=== PATIENT | male | born 1955 | race Caucasian/White ===

== ENCOUNTER → 2017-10-25 07:30 | Outpatient (CLI) | payer OTHER, SELFPAY ==
--- NOTE | 2017-10-25 | DI.CT.S_ITS ---
PROCEDURE: CT ABDOMEN WO/W CON INDICATIONS: NONHYPERFUNCTIONING NEUROENDOCRINE TUMOR TECHNIQUE: Noncontrast 3 mm thick sections acquired through the pancreas. After the administration of intravenous contrast, 3 mm thick pancreatic-phase images acquired from the diaphragm to the iliac crests. 3 mm thick coronal and sagittal reformats were performed. For radiation dose reduction, the following was used: automated exposure control, adjustment of mA and/or kV according to patient size. COMPARISON: [facility], CT, CT ABD PANCREATIC PROTOCOL, 07/17/2016, 9:04. [facility], CT, ABDOMEN/PELVIS WITH CONTRAST, 08/20/2016, 17:25. [facility], CT, CT ABD W CON, 09/22/2016, 11:29. FINDINGS: Image quality: Excellent. Lung bases: There is mild scarring or atelectasis in the lung bases. Heart size is normal. Pancreas: There are postsurgical changes demonstrated status post distal pancreatectomy of the hepatic tail. No discrete mass lesion demonstrated in the residual pancreas. No pancreatic duct dilatation. No peripancreatic fluid collections. Other solid organs: No focal hepatic lesions identified. Gallbladder appears within normal limits without calcified gallstones. Biliary system is non dilated. The spleen is surgically absent. There is mild subdiaphragmatic scarring redemonstrated within the left upper quadrant. No adrenal nodules. Kidneys demonstrate no hydronephrosis. Multiple bilateral renal cysts are demonstrated, slightly increased in size from the prior studies. There is a small amount of the stone within the right renal pelvis measuring up to 0.5 cm. Peritoneum and bowel: Visualized bowel loops demonstrate normal wall thickness and caliber. There is colonic diverticulosis without acute diverticulitis visualized. No free fluid or air. Nodes and vessels: No retroperitoneal or mesenteric adenopathy by size criteria. Aorta and inferior vena cava are normal in size. Bones: No suspicious bony lesions. No vertebral body compression fractures. Miscellaneous: There is fat stranding within the right paracentral ventral abdominal wall in the region of a previously visualized fat containing hernia. IMPRESSION: 1. No evidence of new recurrent or metastatic disease. 2. Postsurgical changes status post distal pancreatectomy and splenectomy with scarring demonstrated. No new fluid collections. 3. Small nonobstructing stone in the right renal pelvis. Dictated by: Armond Cisneros M.D. on 10/25/2017 at 11:17 Approved by: Armond Cisneros M.D. on 10/25/2017 at 11:24
== END ==
PROVIDERS: Family Provider Student in an Organized Health Care Education/Training Program; PCP Family Medicine; Visit Provider Internal Medicine Gastroenterology
DX: C7A.8 Other malignant neuroendocrine tumors (principal)
CPT/HCPCS: 74170; Q9967

== ENCOUNTER 2018-12-04 13:57 | Emergency (ER) | payer OTHER, SELFPAY ==
[2018-12-04 14:00] VITALS: BP 162/92; PULSE 70; RESP 18; TEMP 36.7; O2SAT 96
--- NOTE | 2018-12-04 15:28 | ED_ITS ---
HPI - Skin/Abscess/Foreign Bdy <Filomena Caldwell PA-C - Last Filed: 12/04/18 20:58> General Chief complaint: Skin/Abscess/Foreign Body Stated complaint: Might have a spider bit rt hand Time Seen by Provider: 12/04/18 15:13 Source: patient Mode of arrival: ambulatory Limitations: no limitations History of Present Illness HPI narrative: This 63-year-old right-handed male comes in due to right hand itching and swelling that started suddenly about 7 hours prior to arrival. He states that he was driving from [place] and put his right hand down on the floor between the seat to stretch. He put his hand back on the steering wheel and felt sudden itching in his right middle finger, then redness and swelling that started to spread to the back of his hand within about 20 minutes. He sta merari that he put cold AC on as his hand and finger felt warm, then swelling started to spread into his 2nd finger. He states that it is a little bit hard to bend his fingers because they feel tight, not painful. He states the warm sensation is completely gone and swelling has improved considerably in the last hour. He states that some crates were loaded into his car prior to this occurring and so he thinks maybe a bite from an insect or spider that crawled onto the floor though he did not see when. He denies any other possible injury or trauma and has been feeling well today. He has not had fever. He was sent here from walk-in clinic, now wants to go home and start Benadryl since this is better Related Data Home Medications Medication Instructions Recorded Confirmed multivitamin [Multiple Vitamins] 1 tab PO QDAY #0 09/29/17 03/03/18 Previous Rx's Medication Instructions Recorded hydrochlorothiazide 25 mg tablet 25 mg PO QDAY #30 tab 03/03/18 lisinopril 40 mg tablet 40 mg PO DAILY #30 tab 03/03/18 metoprolol succinate ER 25 mg 25 mg PO QDAY #30 tab 03/03/18 tablet,extended release 24 hr Allergies Allergy/AdvReac Type Severity Reaction Status Date / Time No Known Drug Allergies Allergy Unverified 03/03/18 14:57 Review of Systems <Filomena Caldwell PA-C - Last Filed: 12/04/18 20:58> Review of Systems ROS Unobtainable: All systems reviewed & are unremarkable except as noted in HPI and below PFSH <Filomena Caldwell PA-C - Last Filed: 12/04/18 20:58> Medical History Essential hypertension (12/31/15) Pain of right hip joint (12/31/15) Hydrocele (05/22/16) Hypertension (Chronic) Bilateral hydrocele (Resolved ~09/2017) Hernia (Resolved) Surgical History Status post hernia repair (2006) Status post hernia repair (2002) Status post appendectomy (1967) Hx of hernia repair (Resolved 09/2017) History of hydrocelectomy (Resolved 09/2017) History of pancreatectomy (Resolved 07/2016) 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 Social History Smoking Status: Never smoker Social History Smoking Status: Never smoker Exam <Filomena Caldwell PA-C - Last Filed: 12/04/18 20:58> Narrative Exam Narrative: GENERAL APPEARANCE: Patient sitting comfortably, in no distress. LUNGS: Clear to auscultation bilaterally. HEART: Rate and rhythm regular without murmur, normal S1 and S2, no S3 or S4. DERMATOLOGIC: Right middle finger on the dorsal surface between the PIP and MCP joint there is a small barely raised to to 3 mm papule. Surrounding skin is moderately erythematous extending to the proximal border of the 2nd finger as well as the MCP area. No other lesions, no puncture wounds or lacerations. 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 Right middle finger strength intact in all martins against resistance NEUROVASCULAR: Right hand fingers are warm and pink with brisk cap refill, sensation grossly intact Initial Vital Signs Initial Vital Signs: Vital Signs Temperature 98.1 F 12/04/18 14:00 Pulse Rate 70 12/04/18 14:00 Respiratory Rate 18 12/04/18 14:00 Blood Pressure 162/92 H 12/04/18 14:00 Pulse Oximetry 96 12/04/18 14:00 <Yue Ospina DO - Last Filed: 12/08/18 07:49> Initial Vital Signs Initial Vital Signs: Vital Signs Temperature 98.1 F 12/04/18 14:00 Pulse Rate 70 12/04/18 14:00 Respiratory Rate 18 12/04/18 14:00 Blood Pressure 162/92 H 12/04/18 14:00 Pulse Oximetry 96 12/04/18 14:00 Course <Filomena Caldwell PA-C - Last Filed: 12/04/18 20:58> Additional Information: Patient has had marked improvement during his stay in the ED, and history most suspicious for some type of bite or sting. Reasonable to start Benadryl which he already has at home, and monitor. He agreed to return if any acutely worsening symptoms. Vital Signs - 8 hr 12/04/18 14:00 12/04/18 15:35 Temperature 98.1 F Pulse Rate 70 64 Respiratory Rate 18 15 Blood Pressure 162/92 H 165/91 H Pulse Oximetry 96 95 <Yue Ospina DO - Last Filed: 12/08/18 07:49> Vital Signs - 8 hr 12/04/18 14:00 12/04/18 15:35 Temperature 98.1 F Pulse Rate 70 64 Respiratory Rate 18 15 Blood Pressure 162/92 H 165/91 H Pulse Oximetry 96 95 Discharge Plan Departure Patient Disposition: Home Clinical Impression: Insect bite of finger of right hand Qualifiers: Encounter type: initial encounter Finger: middle finger Qualified Code(s): S60.462A - Insect bite (nonvenomous) of right middle finger, initial encounter Discharge Date/Time: 12/04/18 15:37 Interventions: ED Discharge Assessment Last Done: 12/04/18 15:35 Instructions: DI for Insect Bites and Stings Activity Restrictions/Additional Instructions: I agree with you that the most likely source of the redness on your fingers and hand is an insect or spider bite, especially with a little bump that showed up on your middle finger. Since it has actually improved since you arrived, it is okay to monitor this at home. Please start Benadryl since you have that at home, 25 to 50 mg every 6 hours as needed for itching and redness (remember this can make you sleepy and not to drive). You can take ibuprofen as needed for pain or swelling although the Benadryl may help more. You can continue ice. As we talked about, you should return if this is acutely worse again, i.e. if you have streaking redness, rapid increase in swelling, new weakness or fever. Otherwise, please see your PCP if this is not resolving over the next few days as histamine reactions to bites usually peak within 72 hours, then start to improve. Prescriptions: No Action lisinopril 40 mg tablet 40 mg PO DAILY Qty: 30 RF: 11 hydrochlorothiazide 25 mg tablet 25 mg PO QDAY Qty: 30 RF: 11 metoprolol succinate [Toprol XL] 25 mg tablet extended release 24 hr 25 mg PO QDAY Qty: 30 RF: 11 multivitamin [Multiple Vitamins] 1 EACH tablet 1 tab PO QDAY Qty: 0 RF: 0 Referrals: Nilesh Brewer MD [Primary Care Provider] - <Yue Ospina DO - Last Filed: 12/08/18 07:49> Cosign ED Attending Cosignature Attestation: I was immediately available in the department for consultation. This documentation has been reviewed and I agree with assessment and plan. Supervised by Yue Ospina DO
[2018-12-04 15:35] VITALS: BP 165/91; PULSE 64; RESP 15; O2SAT 95
== END 2018-12-04 15:37 | disposition home or self-care (01) ==
PROVIDERS: Emergency Provider Internal Medicine; Family Provider Student in an Organized Health Care Education/Training Program; PCP Family Medicine
DX: S60.462A Insect bite (nonvenomous) of right middle finger, initial encounter (principal); W57.XXXA Bitten or stung by nonvenomous insect and other nonvenomous arthropods, initial encounter
CPT/HCPCS: 99282

== ENCOUNTER → 2019-04-28 08:08 | Outpatient (CLI) | payer OTHER, SELFPAY ==
[2019-04-28 09:04] LABS: Hemoglobin A1C% w Est Avg Glu 5.8 % (4.0-6.0)
== END ==
PROVIDERS: PCP Family Medicine; Visit Provider Family Medicine
DX: R73.9 Hyperglycemia, unspecified (principal)
CPT/HCPCS: 36415; 83036

== ENCOUNTER → 2020-07-12 15:53 | Outpatient (CLI) | payer OTHER, SELFPAY ==
[2020-07-12] MEDS: COVID-19 VACC #1, MRNA(MOD) 100 MCG/0.5 ML VIAL IM (16:02)
== END ==
PROVIDERS: PCP Family Medicine; Visit Provider Internal Medicine
DX: Z23 Encounter for immunization (principal)
CPT/HCPCS: 0011A; 91301

== ENCOUNTER → 2020-08-09 16:04 | Outpatient (CLI) | payer OTHER, SELFPAY ==
[2020-08-09] MEDS: COVID-19 VACC #2, MRNA(MOD) 100 MCG/0.5 ML VIAL IM (16:10)
== END ==
PROVIDERS: PCP Family Medicine; Visit Provider Internal Medicine
DX: Z23 Encounter for immunization (principal)
CPT/HCPCS: 0012A; 91301

== ENCOUNTER → 2020-08-16 07:23 | Outpatient (CLI) | payer OTHER, SELFPAY ==
[2020-08-16 08:02] LABS: Blood Urea Nitrogen 37 mg/dL (9-20); Estimated Glomerular Filt Rate > 60.0 mL/min (>60)
== END ==
PROVIDERS: PCP Family Medicine; Referring Provider Family Medicine; Visit Provider Family Medicine
DX: Z79.899 Other long term (current) drug therapy (principal)
CPT/HCPCS: 36415; 82565; 84520

== ENCOUNTER → 2020-12-05 11:18 | Outpatient (CLI) | payer OTHER, SELFPAY ==
[2020-12-05 11:57] LABS: Add Manual Diff / Slide Review NO; Basophils Absolute Auto 100 /uL (0-100); Basophils Percent Auto 0.8 % (0-2); Eosinophils Absolute Auto 400 /uL (0-450); Eosinophils Percent Auto 5.2 % (2-4); Hemoglobin 14.6 g/dL (13.5-17.5); Lymphocytes Absolute Auto 1800 /uL (1100-4500); Lymphocytes Percent Auto 24.7 % (25-40); Mean Corpuscular HGB Conc 33.2 % (30-36); Mean Corpuscular Hemoglobin 31.8 PG (26-34); Mean Corpuscular Volume 95.7 fL (80-100); Monocytes Absolute Auto 900 /uL (0-900); Monocytes Percent Auto 11.5 % (3-14); Neutrophils Absolute Auto 4300 /uL (1500-7000); Neutrophils Percent Auto 57.8 % (50-75); Platelet Count 254 X10^3/uL (150-400); Red Blood Cell Count 4.59 X10^6/uL (4.5-5.9); Red Cell Distribution Width 13.6 % (11.6-14.8); White Blood Cell Count 7.4 X10^3/uL (4.5-11.0)
[2020-12-05 12:13] LABS: Cholesterol 198 mg/dL (140-199); Glucose 143 mg/dL (80-110); HDL Cholesterol 63 mg/dL (40-60); LDL Cholesterol Calculated 97 mg/dL (<100); Triglycerides 191 mg/dL (35-150)
[2020-12-05 12:59] LABS: Vitamin D 25 Hydroxy (D3) 20.3 ng/mL (30.0-100.0)
[2020-12-05 13:14] LABS: Thyroid Stimulating Hormone 0.523 uIU/mL (0.47-4.68)
[2020-12-05 13:17] LABS: Folate 7.4 ng/mL (2.76-20.0); Vitamin B12 345 pg/mL (239-931)
[2020-12-05 14:45] LABS: Bacteria Urine None Seen; RBC Urine None Seen (0-5/HPF); WBC Urine None Seen (0-5/HPF)
[2020-12-05 14:59] LABS: Appearance Urine UA CLEAR; Bilirubin Urine UA NEGATIVE (NEGATIVE); Color Urine UA YELLOW; Glucose Urine UA NEGATIVE (Negative); Ketones Urine UA NEGATIVE (NEGATIVE); Leukocyte Esterase Urine UA NEGATIVE (NEGATIVE); Nitrite Urine UA NEGATIVE (Negative); Occult Blood Urine UA NEGATIVE (Negative); Protein Urine UA NEGATIVE (Negative); Specific Gravity Urine UA >=1.030 (1.000-1.035); Urobilinogen Urine UA 0.2 E.U./dL (0.2)
[2020-12-05 15:15] LABS: Culture Indicated Urine Cult Not Indicated; Uric Acid Crystals Urine Few
== END ==
PROVIDERS: PCP Family Medicine; Referring Provider Family Medicine; Visit Provider Family Medicine
DX: E78.2 Mixed hyperlipidemia (principal); K05.6 Periodontal disease, unspecified
CPT/HCPCS: 36415; 80061; 81001; 82180; 82306; 82607; 82746; 82947; 83036; 84443; 85025; 86140

== ENCOUNTER → 2024-05-16 10:27 | Outpatient (CLI) | payer OTHER, SELFPAY ==
[2024-05-16 12:14] LABS: Add Manual Diff / Slide Review NO; Basophils Absolute Auto 100 /uL (0-100); Basophils Percent Auto 1.4 % (0-2); Eosinophils Absolute Auto 600 /uL (0-450); Eosinophils Percent Auto 10.2 % (2-4); Hematocrit 43.5 % (41-53); Hemoglobin 14.9 g/dL (13.5-17.5); Lymphocytes Absolute Auto 1400 /uL (1100-4500); Lymphocytes Percent Auto 24.6 % (25-40); Mean Corpuscular HGB Conc 34.2 % (30-36); Mean Corpuscular Hemoglobin 33.7 PG (26-34); Mean Corpuscular Volume 98.5 fL (80-100); Monocytes Absolute Auto 800 /uL (0-900); Monocytes Percent Auto 13.8 % (3-14); Neutrophils Absolute Auto 2800 /uL (1500-7000); Platelet Count 241 X10^3/uL (150-400); Red Blood Cell Count 4.41 X10^6/uL (4.5-5.9); Red Cell Distribution Width 13.1 % (11.6-14.8); White Blood Cell Count 5.7 X10^3/uL (4.5-11.0)
[2024-05-16 12:50] LABS: BUN Creatinine Ratio 29.4 (6-22); Blood Urea Nitrogen 25 mg/dL (9-20); Calcium 9.5 mg/dL (8.4-10.2); Carbon Dioxide 25 mmol/L (22-32); Chloride 105 mmol/L (98-107); Estimated Glomerular Filt Rate > 60 mL/min (>60); Glucose 127 mg/dL (80-110); HEMOLYSIS < 15 (0-50); Potassium 4.3 mmol/L (3.4-5.1); Sodium 137 mmol/L (137-145)
[2024-05-16 12:58] LABS: Hemoglobin A1C% w Est Avg Glu 5.3 % (4.0-6.0)
--- NOTE | 2024-05-16 13:17 | EKG_ITS ---
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
[2024-05-16 13:20] LABS: Appearance Urine UA CLEAR; Bilirubin Urine UA NEGATIVE (NEGATIVE); Color Urine UA YELLOW; Glucose Urine UA NEGATIVE (Negative); Ketones Urine UA TRACE (NEGATIVE); Leukocyte Esterase Urine UA NEGATIVE (NEGATIVE); Nitrite Urine UA NEGATIVE (Negative); Occult Blood Urine UA NEGATIVE (Negative); Protein Urine UA NEGATIVE (Negative); Specific Gravity Urine UA 1.025 (1.000-1.035); Urobilinogen Urine UA 0.2 E.U./dL (0.2)
[2024-05-16 13:56] LABS: Bacteria Urine None Seen; Culture Indicated Urine Cult Not Indicated; RBC Urine None Seen (0-5/HPF); Squamous Epithelial Cell Urine None Seen (0-5/HPF); Uric Acid Crystals Urine Moderate; Urine Volume 10mL (spun); WBC Urine None Seen (0-5/HPF)
== END ==
PROVIDERS: PCP Family Medicine; Referring Provider Orthopaedic Surgery; Visit Provider Orthopaedic Surgery
DX: Z01.818 Encounter for other preprocedural examination (principal); Z01.812 Encounter for preprocedural laboratory examination; R73.9 Hyperglycemia, unspecified; N39.0 Urinary tract infection, site not specified
CPT/HCPCS: 36415; 80048; 81001; 83036; 85025; 93005

== ENCOUNTER 2024-05-25 05:56 | Day surgery (SDC) | payer OTHER, SELFPAY ==
[2024-05-17 08:22] VITALS: BMI 28.4
[2024-05-25] VITALS (10 sets, daily range): BP systolic 109–129; BP diastolic 52–76; PULSE 16–501; RESP 12–95; TEMP 36.6–37.1; O2SAT 93–98; BMI 29.5; BMI 30.1
--- NOTE | 2024-05-25 | DI.RAD.S_ITS ---
PROCEDURE: XR HIP W PEL IF DONE RT 2V INDICATIONS: RIGHT ANTERIOR BELÉN TECHNIQUE: 3 intraoperative fluoroscopic views of the hip acquired. COMPARISON: None. FINDINGS: Intraoperative fluoroscopic images shows right total hip arthroplasty in progress. IMPRESSION: Fluoro guidance was provided intraoperatively for right total hip arthroplasty performed by ordering physician. Dictated by: Hayden Zaragoza M.D. on 05/25/2024 at 10:42 Approved by: Hayden Zaragoza M.D. on 05/25/2024 at 10:43
--- NOTE | 2024-05-25 06:00 | DI.RAD.S_ITS ---
PROCEDURE: XR HIP W PEL IF DONE RT 2V INDICATIONS: BELÉN TECHNIQUE: 2 view(s) of the hip acquired. COMPARISON: [facility], CR, XR HIP W PEL IF DONE RT 2V, 05/25/2024, 9:08. FINDINGS: Bones: Patient is status post right hip arthroplasty, with hardware components in expected positions. The hip joint appears congruent. The visualized bony structures appear intact. Soft tissues: Overlying postoperative changes are noted. No suspicious soft tissue densities. IMPRESSION: Expected post-operative appearance of a hip arthroplasty. Dictated by: Garcia Hadley M.D. on 05/25/2024 at 11:19 Approved by: Garcia Hadley M.D. on 05/25/2024 at 11:19
[2024-05-25] MEDS: CELECOXIB 200 MG CAPSULE PO (06:57)
[2024-05-25] MEDS: VANCOMYCIN 1,500 MG/300 ML PIGGYBACK 200 MG IV (06:57)
[2024-05-25] MEDS: LACTATED RINGERS 1,000 ML 42 ML IV (06:57)
--- NOTE | 2024-05-25 07:30 | PM.PREOP ---
Pre-operative Note Interval Note History & Physical reviewed/Exam performed by Physician: Yes Changes to H&P: No
--- NOTE | 2024-05-25 07:30 | PM.OP.1 ---
Operative Date/Time/Diagnoses Date of procedure: 05/25/24 Time of procedure: 08:00 Pre-op diagnosis: right hip OA Post-op diagnosis: same Procedure & Clinicians Procedure: Right total hip arthroplasty anterior approach Same procedure as scheduled: Yes Indications: The patient has had progressively worsening right hip pain with radiographic changes consistent with arthritis. Non-operative management has failed and the patient has requested total hip replacement. The risks, benefits and alternatives to surgery were discussed with the patient prior to proceeding. Risks discussed included, but were not limited to, failure to relieve pain, leg length discrepancy, dislocation, stiffness, infection, nerve damage, deep venous thrombosis, pulmonary embolism, stroke, coma, heart attack, permanent paralysis and , as well as the potential need for eventual revision of the prosthetic. Surgeon: Betsy Giles Maintenance Technician 2Nd Shift: Nate Marte Anesthesia Type: General Operative Notes Findings: Severe right hip OA, adequate bone, adequate stability Closure Type: primary Specimen(s): none sent Prosthetic devices, grafts, tissues, transplants, or devices: [employer] R3 60, neutral poly liner, one 6.5 mm screw, polar stem 5 lateralized, 40 by +4 cobalt ch Estimated Blood Loss (mL): 250 Blood products transfused: none Procedure in detail: The patient was brought to the operating room. Patient was carefully positioned in the supine position. Time-out was performed and antibiotics were given. Anesthesia was induced. He was positioned in the on the table in order to allow hyperextension of the hip. The right lower extremity was prepped and draped in a standard sterile fashion. An anterior right hip incision was made 1 fingerbreadth lateral to the anterior superior iliac spine and extended distally towards the greater trochanter. Dissection was carried out through skin and subcutaneous tissues. Superficial hemostasis was achieved. The fascia over the tensor fascia camila was defined and incised with a knife. Two Allis clamps were used to grasp the fascia. Tensor fascia camila was retracted laterally. A gelpi retractor was placed. Dissection was carried out down along the neck. The circumflex vessels were carefully identified and cauterized with the Aqua Mantis. There was good visualization of the femoral neck. A Cobra was placed superior to the neck and the gluteus fibers were carefully stripped from that superior aspect of the capsule. A 2nd retractor was placed along the inferior aspect of the neck. The rectus insertion along the capsule was partially released. A 3rd retractor that was then gently placed over the rim of the acetabulum under the rectus. Capsule was carefully incised and released from the intertrochanteric line circumferentially superior to the mid sagittal line and inferiorly to the mid sagittal line until the lesser trochanter was palpable. A tag stitch was placed both in the superior and inferior limb of the capsular insertion. Along the acetabulum capsule was also released up to the mid sagittal 12:00 position. A portion of the labrum was resected. A saw was used to perform an osteotomy at the level of the intertrochanteric line and the junction of the superior femoral neck leaving approximately 1 finger breath of residual inferior neck above the lesser trochanter. A PA was used during the procedure and was essential for intraoperative retraction and safe implantation of the components. A 2nd cut was made along the femoral neck at the base of the head and a napkin ring of neck was removed. Corkscrew was placed in the femoral head and the head was removed without difficulty. Retractors were then repositioned around the acetabulum. Residual labrum was resected and additional osteophytes were removed. A reamer that was 4 mm below the templated size was placed by hand in the acetabulum and it was reamed to centralize the acetabulum. It was then reamed up to 2 under the templated size and fluoroscopy was brought in to confirm the position of the reaming and depth of reaming. I reamed 1 under the anticipated size. A trial cup was placed and noted that it was appropriately sized and fluoroscopy confirmed position and depth. The component was open and inserted without difficulty fluoroscopic imaging was used to confirm that the cup had been adequately seated and was well positioned. It was further stabilized with a screw. Neutral poly liner was placed. The cup was tested and noted to be stable. Attention was then directed to the femur. The femur was gently hyperextended additional capsular release was performed as needed in order to allow adequate visualization of the proximal femur with elevation of the femur. Patient was placed in a hyperextended slightly adducted position with maximum external rotation. Box osteotome was used to check for any residual neck as well as sclerotic bone along the trochanter. [place] pepper was placed in the femur. Additional broaching was performed. Canal finder was used to determine the alignment of the canal and position. Size 1 broach was placed. The canal was then appropriately broached up to the templated size as long as there was adequate stability of the broach and serial advancement of the broach without excessive impingement. Specific attention was directed at avoiding varus attempting to direct the distal aspect of the broach more anteriorly and avoiding excessive anteversion. Trial reduction showed acceptable range of motion, good stability, no posterior impingement, mandaen of leg length and appropriate lateral shuck. I also hyperflexed the hip and checked that there was no impingement anteriorly and there was good stability with flexion, adduction and internal rotation. Marcaine and Exparel 266 mg were injected. The stem was placed without difficulty. Repeat trial reduction and x-ray showed acceptable overall position, length, and no evidence of the femoral fracture. Final head was placed. Wound was meticulously irrigated with normal saline. The hip was reduced and additional Exparel and Marcaine were injected. The capsule was closed with interrupted nonabsorbable sutures. The fascia of the tensor was closed with interrupted and running Vicryl. No drain was placed. Any tensor fascia camila muscle that appeared to be contused or injured which was a minimal amount was carefully resected. Capsule around the tensor was injected with Exparel and Marcaine. The skin was closed with barbed stitches for the subcutaneous tissue and skin. We also used surgical glue. The wound was dressed sterilely. Brief Betadine soak was also used and was meticulously irrigated with normal saline. Patient was transferred to recovery room in satisfactory condition. Complications: none Post-operative Condition: stable Disposition: Acute Care Plan for aftercare: The patient will be maintained on a standard total hip replacement protocol with weight bearing as tolerated and anterior hip precautions. The patient will receive eliquis and sequential compression devices for DVT prophylaxis. The patient will be discharged home when safe for the home environment.
[2024-05-25] MEDS: CEFAZOLIN 2 GM/100 ML PREMIX 100 ML IV (08:03)
--- NOTE | 2024-05-25 08:25 | SUR.OPER ---
Supine on padded [place] table with bilateral legs secured in padded positioning boots and suspended in positioning spars, operative leg in traction per surgeon. Head on one pillow. Arm on non-operative side secured on padded armboard <90 degrees abduction. Arm on operative side padded and resting across chest then secured with tape over sheet. Padded perineal post in place per surgeon.
[2024-05-25] MEDS: BUPIVACAINE 0.25% (PF) 60 ML, EPINEPHrine 0.3 MG INJ (08:35)
[2024-05-25] MEDS: BUPIVACAINE LIPOSOME 266 MG/20 ML VIAL INJ (08:36)
[2024-05-25] MEDS: LACTATED RINGERS 1,000 ML 100 ML IV (11:51)
[2024-05-25] MEDS: ACETAMINOPHEN 325 MG TABLET 650 MG PO (13:11)
--- NOTE | 2024-05-25 13:34 | PT.IIE ---
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) Status post appendectomy (1967) Status post hernia repair (2006) Status post hernia repair (2002) Medical History (Last Reviewed 05/25/24 @ 06:55 by Citlalli Aguilar, RN) Bilateral hydrocele (~09/2017) Dry mouth DVT (deep venous thrombosis) Dysphagia Essential hypertension (12/31/15) Gout (~2020) Head and neck cancer (~2022) Hernia Hydrocele (05/22/16) Hypertension Osteoarthritis Pain of right hip joint (12/31/15) Pulmonary embolism on long-term anticoagulation therapy (05/2022) Status post chemoradiation Wears glasses Physical Therapy Inpatient Evaluation/Re-Eval M1 PT/OT-IP Prior Functional Status Start: 05/25/24 12:58 Freq: NEEDED Status: Active Protocol: Document 05/25/24 13:05 MB (Rec: 05/25/24 13:33 MB [id number]) Medical Review Prior Functional Status Medical History Reviewed Yes Diet/Fluid Consistency Regular Communication WNLs Mobility and Gait I Activities of Daily Living and IADL's I, lives with Social History Household Members spouse Living Arrangements House Number of Stairs To Enter/Railing? Pt to d/c to his kids' house in [place] that does not have steps to enter Home Environment High Toilet,Tub/Shower Home Equipment Four Wheel Walker,Hand Held Shower,Grab Bars Near Toilet, Grab Bars In Shower Employment Status Retired M2 PT-IP Current Condition Start: 05/25/24 12:58 Freq: NEEDED Status: Active Protocol: Document 05/25/24 13:05 MB (Rec: 05/25/24 13:33 MB [id number]) Physical Therapy Current Condition Current Condition Evaluation Date 05/25/24 Treatment Diagnosis Right anterior hip replacement M3 PT-IP Subjective Start: 05/25/24 12:58 Freq: NEEDED Status: Active Protocol: Document 05/25/24 13:05 MB (Rec: 05/25/24 13:33 MB [id number]) Subjective Physical Therapy Visit Type Type Initial Evaluation Visit Start Time 13:05 Visit Stop Time 13:25 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 Physical Therapy Visit Comments Patient Comments Pt communicates needs Therapy Pain Assessment Pain When Pain Assessed At Rest Pain Present Pain Present Pain Reported Location Right hip Intensity 3 Scale Used Numeric (0 - 10) M4 PT-IP Mobility and Gait Start: 05/25/24 12:58 Freq: NEEDED Status: Active Protocol: Document 05/25/24 13:05 MB (Rec: 05/25/24 13:33 MB [id number]) PT-Bed Mobility Assessment Rolling Level of Assist Contact Guard Assistance Supine to Sit Supine to Sit Contact Guard Assistance,1 Person Assistance,Head of Bed Elevated,Bedrails Scooting Scooting to Edge of Bed Contact Guard Assistance PT-Transfer Assessment Sit to and From Stand Sit to and from Stand Contact Guard Assistance,1 Person Assistance,Use of Upper Extremities Equipment Transfer Assistive Device Gait Belt,Front Wheeled Walker Orthotic/Prosthetic Devices or Brace: No Transfers Transfer Destination Toilet Transfer Technique Ambulation Transfer Ability Level of Assist Contact Guard Assistance,1 Person Assistance,Use of Upper Extremities Comments Mobility Comments Cues for hand placement and stepping pattern for first time up, ed pt and demo no hyperextension right leg. BP does not drop with hook lying to standing and is 126/71, 56 in hook lying Gait Assessment Gait Gait Assistance Required: Contact Guard Assist Distance (Feet) 15 Able to Maintain Weight Bearing Status Yes During Gait Assistive Devices Assistive Device Gait Belt,Front Wheeled Walker Orthotic/Prosthetic Devices or Brace: No Gait Deviations General Gait Pattern Antalgic,Decreased Stride Length,Step-to Gait,Wide Based Gait Factors Limiting Gait Function Factors Limiting Gait Function Decreased Activity Tolerance, Decreased Strength, Incoordination,Limited Range of Motion,Pain,Poor Balance Comments Gait Comments Pt with severe varus B knees, greater on the right, pt stands to urinate over commode with walker and gait belt and CGA and PT calls nsg in to complete ADL d/t PT schedule PT-Balance Assessment Sitting Balance and Reactions Static Sitting Balance Ability Good Dynamic Sitting Balance Ability Fair Standing Balance and Reactions Static Standing Balance Ability Fair Dynamic Standing Balance Ability Fair Device Used RW M5 PT-IP Objective Assessments Start: 05/25/24 12:58 Freq: NEEDED Status: Active Protocol: Document 05/25/24 13:05 MB (Rec: 05/25/24 13:33 MB [id number]) Orientation Orientation/Cognition Level of Alertness Alert Orientation Name,Age,Birthday,Month,Date, Year,Day of Week,Place, Situation Language Function Ability No Deficits Noted Safety Awareness Decreased Safety Awareness Memory Description No Deficits Noted Gross Range of Motion Upper Extremity ROM Impairments Defer to OT Lower Extremity ROM Assessment Right Impaired Impairments Decreased AROM right ankle today with AP and decreased right hip and knee range as well Strength Lower Extremity Strength Assessment Right Impaired Coordination Assessment Gross Coordination Gross Coordination Impaired Assessment Coordination Comments Slow mobility and coordination post-op Sensation Assessment Comments Sensation Comments Denies paresthesias Muscle Tone Muscle Tone WNL Yes M6 PT-IP Treatment Start: 05/25/24 12:58 Freq: NEEDED Status: Active Protocol: Document 05/25/24 13:05 MB (Rec: 05/25/24 13:33 [id number]) Physical Therapy Treatment Exercises Exercises Ankle Pumps Other Treatments Other Treatment Performed Reviewed no hyperextension, QS , GS and APs M7 PT-IP Assessment and Plan Start: 05/25/24 12:58 Freq: NEEDED Status: Active Protocol: Document 05/25/24 13:05 MB (Rec: 05/25/24 13:33 [id number]) PT Summary Assessment and Plan Potential Rehabilitation Potential Good Status of Condition at Evaluation Evolving Summary Impairments Pain,ROM,Strength,Balance, Coordination,Bed Mobility, Transfers,Gait,Activity Tolerance Progress Towards Goals Progressing Toward Goals Assessment Summary Pt is a 68 y/o male who does well post-op right anterior hip replacement today. He is able to urinate standing at toilet with RW and CGA and he is not orthostatic. Pain increases to 5.5/10 with increased gait distance and standing at commode. Recommend up to chair for meals and to toilet with nsg and RW. May need RW for d/c. Goals Bed Mobility Goal Independent Transfer Goal Independent,Front Wheeled Walker Gait Goal Independent,Front Wheel Walker Gait Distance 150 Other Goals If pt progresses well, practice steps so he can get in and out of his own home well. Days to Meet Goals 3 Frequency of Treatment Frequency Of Treatment Twice a Day Treatment Plan Physical Therapy Treatment Plan Bed Mobility Training,Transfer Training,Gait Training, Therapeutic Exercise,Balance Retraining,Post Op Education, Discharge Planning,Hot or Cold Pack,Neuromuscular Re-ed, Coordination Retraining,Manual Therapy Precautions Other Precautions No hyperextension right leg/ hip Weight Bearing Status Weight Bearing Status Weight Bear as Tolerated Recommendations To Nursing Amount of Assist Needed 1 Person Assist Discharge Recommendations PT Discharge Recommendations Home with Assistance, Outpatient PT Equipment Needed for Home Before May need RW for home, thinks Discharge he only has 4WRW Transportation Needs at Discharge Private Vehicle
--- NOTE | 2024-05-25 16:18 | OT.IP.EVAL ---
Current Diagnoses Unilateral primary osteoarthritis, right hip (05/25/24) Surgery Performed Operation Date: 05/25/24 07:45 Actual Procedures p Total Hip Arthroplasty/Anterior Approach(Right) - Betsy Giles MD Past Medical History (Last Reviewed 05/25/24 @ 06:55 by Citlalli Aguilar, RN) Bilateral hydrocele (~09/2017) Dry mouth DVT (deep venous thrombosis) Dysphagia Essential hypertension (12/31/15) Gout (~2020) Head and neck cancer (~2022) Hernia Hydrocele (05/22/16) Hypertension Osteoarthritis Pain of right hip joint (12/31/15) Pulmonary embolism on long-term anticoagulation therapy (05/2022) Status post chemoradiation Wears glasses Surgical History (Last Reviewed 05/25/24 @ 06:55 by Citlalli Aguilar, FRED) History of hydrocelectomy (09/2017) 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) Hx of hernia repair (09/2017) 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) Status post appendectomy (1967) Status post hernia repair (2006) Status post hernia repair (2002) Occupational Therapy Inpatient Evaluation/Re-Eval M1 PT/OT-IP Prior Functional Status Start: 05/25/24 12:58 Freq: NEEDED Status: Active Protocol: Document 05/25/24 16:20 [facility] (Rec: 05/25/24 16:31 [facility] [id number]) Medical Review Prior Functional Status Medical History Reviewed Yes Diet/Fluid Consistency Regular Communication WNLs Mobility and Gait I Activities of Daily Living and IADL's I, lives with Social History Household Members spouse Living Arrangements House Number of Stairs To Enter/Railing? Pt to d/c to his kids' house in [place] that does not have steps to enter Home Environment High Toilet,Tub/Shower Home Equipment Four Wheel Walker,Hand Held Shower,Grab Bars Near Toilet, Grab Bars In Shower Employment Status Retired M2 OT-IP Current Condition Start: 05/25/24 16:19 Freq: Status: Active Protocol: Document 05/25/24 16:20 [facility] (Rec: 05/25/24 16:31 [facility] [id number]) Occupational Therapy Current Condition Current Condition Evaluation Date 05/25/24 Treatment Diagnosis S/P R BELÉN anterior Diagnosis Onset Date 05/25/24 Post Operative Precautions Other Precautions NO excessive hyperextensiona and hip external rotation. M3 OT- IP Subjective and Pain Start: 05/25/24 16:19 Freq: Status: Active Protocol: Document 05/25/24 16:20 [facility] (Rec: 05/25/24 16:31 [facility] [id number]) OT- Subjective Occupational Therapy Visit Type Type Initial Evaluation Visit Start Time 16:00 Visit Stop Time 16:18 Occupational Therapy Visit Comments Patient Comments Pt agreed to work with OT and getting ready to go home. Patient/Caregiver Goals TO go home. OT Pain Assessment Pain When Pain Assessed During Mobility Pain Present Pain Present Pain Reported Location Right hip Pain Behaviors Facial Grimacing M4 OT- IP ADL's Start: 05/25/24 16:19 Freq: Status: Active Protocol: Document 05/25/24 16:20 [facility] (Rec: 05/25/24 16:31 [facility] [id number]) OT [id number] Comments OT Self-Feeding Comments Not at meal time. OT ADL-Grooming Comments OT Grooming Comments Not performed. OT ADL-Oral Care Comments Oral Care Comments NOt performed. OT ADL-Dressing Comments OT Dressing Comments Educated to dress the RLE first and take out last. Able to talk about LB dressing equipment, pt states to just get assist. OT ADL-Toileting Comments OT Toileting Comments Pt to take the urinal home. OT ADL-Bathing Comments OT Bathing Comments Suggested pt get shower chair . Spoke of covering the dressing for showering needs. M5 OT- IP IADL's Start: 05/25/24 16:19 Freq: Status: Active Protocol: Document 05/25/24 16:20 [facility] (Rec: 05/25/24 16:31 [facility] [id number]) OT-Instrumental Activities of Daily Living Home Safety Awareness Home Safety Comments Pt has a supportive family to assist him at home. M6 OT- IP Functional Cognition Start: 05/25/24 16:19 Freq: Status: Active Protocol: Document 05/25/24 16:20 [facility] (Rec: 05/25/24 16:31 [facility] [id number]) Cognitive Factors Limiting Selfcare Function Cognitive Ability Level of Alertness Alert Patient Orientation Name,Age,Birthday,Month,Date, Year,Day of Week,Place, Situation Attention Span Ability Capable of Focused Attention, Capable of Sustained Attention Ability to Follow Commands Able to Follow One Step Commands Cognitive Comments Cognitive Assessment Comments Pt able to follow commands for ADL and mobility needs. OT- Vision and Hearing OT- Hearing Assessment OT- Hearing Assessment WFL OT- Vision Assessment Visual Acuity Glasses All The Time Visual Attentiveness WFL Occular Pursuits WFL M7 OT- IP Mobility and Balance Start: 05/25/24 16:19 Freq: Status: Active Protocol: Document 05/25/24 16:20 [facility] (Rec: 05/25/24 16:31 [facility] [id number]) OT- Bed Mobility Assessment Supine to Sit Supine to Sit Assist Moderate Assistance Sit to Supine Sit to Supine Assist Minimal Assistance OT-Transfer Assessment Comments Mobility Comments Pt MODA to assist to get his RLE into the bed and educated to use the gait belt or assist . Reminders to be sure to not externally rotate his RLE outwards for bed mobility and car transfers. OT- Balance Assessment Sitting Balance and Reactions Static Sitting Balance Ability Normal Dynamic Sitting Balance Ability Good M8 OT- IP Objective Assessments Start: 05/25/24 16:19 Freq: Status: Active Protocol: Document 05/25/24 16:20 [facility] (Rec: 05/25/24 16:31 [facility] [id number]) OT Gross Range of Motion Upper Extremity Range of Motion Assessment Within Functional Limits OT Strength Upper Extremity Strength Assessment Within Functional Limits M9 OT- IP Assessment and Plan Start: 05/25/24 16:19 Freq: Status: Active Protocol: Document 05/25/24 16:20 [facility] (Rec: 05/25/24 16:31 [facility] [id number]) OT Summary Assessment and Plan Potential Rehabilitation Potential Excellent Analytic Complexity at Evaluation Low Summary OT Impairments Pain,Balance,Functional Mobility,Dressing,Toileting, Bathing,Toilet Transfers, Shower Transfers Progress Towards Goals Progressing Toward Goals Assessment Summary Pt low complexity and main barriers are pain, RLE still recovering from sx this morning and needing physical assist to help move his RLE into and out of the bed. Went over ADL equipment and need with pt . Pt to go home with assist and to have outpt PT. Goals Grooming Goal Independent Dressing Goal Independent Toileting Goal Independent Bathing Goal Standby Assistance Toilet Transfer Goal Independent Shower Transfer Goal Independent Days to Meet Goals 7 Frequency of Treatment Other frequency 5x/week Treatment Plan OT Treatment Plan ADL Training,Functional Mobility,Patient/Family Education,Discharge Planning Discharge Recommendations OT Discharge Recommendations Home with 11/01 Assist Available,Outpatient PT Transportation Needs at Discharge Private Vehicle
--- NOTE | 2024-05-25 17:46 | PC.NURSE ---
Day shift: Patient admitted to floor from PACU. 3 hours later MD Giles at bedside and told patient he could go home. PT/OT worked with patient. Patient's pain minimal and controlled with PO acetaminophen. Discharge instructions gone over with patient - all questions answered/patient stated understanding. PIV removed prior to discharge. All belongings with patient. Patient's son Hernandez came to room to pick patient up. ESTRELLA Guevara escorted patient to exit via wheelchair.
== END 2024-05-25 16:50 | disposition home or self-care (01) ==
LOC: OR 05:58 → AC 05:59
PROVIDERS: PCP Family Medicine; Referring Provider Orthopaedic Surgery; Visit Provider Orthopaedic Surgery
PROC: (CPT 27130; principal; 2024-05-25 07:45)
DX: M16.11 Unilateral primary osteoarthritis, right hip (principal); Z86.718 Personal history of other venous thrombosis and embolism; Z79.01 Long term (current) use of anticoagulants; Z86.711 Personal history of pulmonary embolism; Z87.891 Personal history of nicotine dependence; M25.751 Osteophyte, right hip
CPT/HCPCS: 27130; 73502; 76000; 97161; 97165; C1776; C1713; C9290; J0171; J0690; J1100; J1171; J2250; J2405; J2704; J3010

== ENCOUNTER → 2024-07-13 12:28 | Outpatient (CLI) | payer OTHER, SELFPAY ==
[2024-05-25 11:53] VITALS: BMI 30.1
[2024-07-13 13:24] LABS: Add Manual Diff / Slide Review NO; Basophils Absolute Auto 0 /uL (0-100); Basophils Percent Auto 0.7 % (0-2); Eosinophils Absolute Auto 400 /uL (0-450); Eosinophils Percent Auto 6.7 % (2-4); Hematocrit 44.9 % (41-53); Hemoglobin 14.9 g/dL (13.5-17.5); Lymphocytes Absolute Auto 1500 /uL (1100-4500); Lymphocytes Percent Auto 22.8 % (25-40); Mean Corpuscular HGB Conc 33.1 % (30-36); Mean Corpuscular Hemoglobin 32.8 PG (26-34); Mean Corpuscular Volume 98.8 fL (80-100); Monocytes Absolute Auto 800 /uL (0-900); Monocytes Percent Auto 12.9 % (3-14); Neutrophils Absolute Auto 3700 /uL (1500-7000); Neutrophils Percent Auto 56.9 % (50-75); Platelet Count 308 X10^3/uL (150-400); Red Blood Cell Count 4.54 X10^6/uL (4.5-5.9); Red Cell Distribution Width 14.6 % (11.6-14.8); White Blood Cell Count 6.5 X10^3/uL (4.5-11.0)
[2024-07-13 13:43] LABS: Appearance Urine UA CLEAR; Bilirubin Urine UA NEGATIVE (NEGATIVE); Color Urine UA YELLOW; Glucose Urine UA NEGATIVE (Negative); Ketones Urine UA NEGATIVE (NEGATIVE); Leukocyte Esterase Urine UA NEGATIVE (NEGATIVE); Nitrite Urine UA NEGATIVE (Negative); Occult Blood Urine UA NEGATIVE (Negative); Protein Urine UA NEGATIVE (Negative); Urobilinogen Urine UA 0.2 E.U./dL (0.2); pH Urine UA 6.5 (4.5-8.0)
[2024-07-13 13:50] LABS: Hemoglobin A1C% w Est Avg Glu 5.1 % (4.0-6.0)
[2024-07-13 13:52] LABS: BUN Creatinine Ratio 22.1 (6-22); Blood Urea Nitrogen 19 mg/dL (9-20); Calcium 9.5 mg/dL (8.4-10.2); Carbon Dioxide 29 mmol/L (22-32); Chloride 103 mmol/L (98-107); Estimated Glomerular Filt Rate > 60 mL/min (>60); Glucose 110 mg/dL (80-110); HEMOLYSIS < 15 (0-50); Potassium 4.4 mmol/L (3.4-5.1); Sodium 139 mmol/L (137-145)
[2024-07-13 13:54] LABS: Bacteria Urine None Seen; Culture Indicated Urine Cult Not Indicated; RBC Urine None Seen (0-5/HPF); Squamous Epithelial Cell Urine None Seen (0-5/HPF); Urine Volume 10mL (spun); WBC Urine None Seen (0-5/HPF)
== END ==
PROVIDERS: PCP Family Medicine; Referring Provider Orthopaedic Surgery; Visit Provider Orthopaedic Surgery
DX: Z01.818 Encounter for other preprocedural examination (principal); Z01.812 Encounter for preprocedural laboratory examination; R73.9 Hyperglycemia, unspecified; N39.0 Urinary tract infection, site not specified
CPT/HCPCS: 36415; 80048; 81001; 83036; 85025

== ENCOUNTER → 2024-10-20 12:21 | Outpatient (CLI) | payer OTHER, SELFPAY ==
[2024-05-25 11:53] VITALS: BMI 30.1
[2024-10-20 13:05] LABS: Add Manual Diff / Slide Review NO; Basophils Absolute Auto 100 /uL (0-100); Basophils Percent Auto 1.5 % (0-2); Eosinophils Absolute Auto 300 /uL (0-450); Eosinophils Percent Auto 3.5 % (2-4); Hematocrit 40.1 % (41-53); Hemoglobin 13.5 g/dL (13.5-17.5); Lymphocytes Absolute Auto 1300 /uL (1100-4500); Mean Corpuscular HGB Conc 33.7 % (30-36); Monocytes Absolute Auto 1100 /uL (0-900); Monocytes Percent Auto 14.2 % (3-14); Neutrophils Absolute Auto 5000 /uL (1500-7000); Neutrophils Percent Auto 63.8 % (50-75); Platelet Count 277 X10^3/uL (150-400); Red Blood Cell Count 4.09 X10^6/uL (4.5-5.9); Red Cell Distribution Width 15.5 % (11.6-14.8); White Blood Cell Count 7.8 X10^3/uL (4.5-11.0)
[2024-10-20 13:30] LABS: Erythrocyte Sedimentation Rate 9 MM/HR (0-15)
[2024-10-20 13:33] LABS: C-Reactive Protein Quant 2.3 mg/dL (<1.0)
== END ==
PROVIDERS: PCP Family Medicine; Referring Provider Family Medicine; Visit Provider Psychiatry & Neurology Neurology
DX: Z96.651 Presence of right artificial knee joint (principal)
CPT/HCPCS: 36415; 85025; 85651; 86140

== ENCOUNTER → 2024-12-06 14:27 | Outpatient (CLI) | payer OTHER, SELFPAY ==
[2024-05-25 11:53] VITALS: BMI 30.1
[2024-12-06 14:49] LABS: Appearance Urine UA CLEAR; Bilirubin Urine UA NEGATIVE (NEGATIVE); Color Urine UA YELLOW; Glucose Urine UA NEGATIVE (Negative); Ketones Urine UA TRACE (NEGATIVE); Leukocyte Esterase Urine UA NEGATIVE (NEGATIVE); Nitrite Urine UA NEGATIVE (Negative); Occult Blood Urine UA NEGATIVE (Negative); Protein Urine UA NEGATIVE (Negative); Urobilinogen Urine UA 0.2 E.U./dL (0.2); pH Urine UA 5.5 (4.5-8.0)
[2024-12-06 15:00] LABS: Bacteria Urine None Seen; Culture Indicated Urine Cult Not Indicated; RBC Urine None Seen (0-5/HPF); Squamous Epithelial Cell Urine 0-1 /HPF (0-5/HPF); Urine Volume 10mL (spun); WBC Urine None Seen (0-5/HPF)
[2024-12-06 16:27] LABS: Hemoglobin A1C% w Est Avg Glu 5.1 % (4.0-6.0)
[2024-12-06 16:30] LABS: Prostate Specific Antigen 1.18 ng/mL (0.10-4.00)
== END ==
LOC: LAB 14:28
PROVIDERS: PCP Family Medicine; Referring Provider Family Medicine; Visit Provider Family Medicine
DX: R39.15 Urgency of urination (principal); R35.0 Frequency of micturition; R35.1 Nocturia; R97.20 Elevated prostate specific antigen [PSA]; R73.03 Prediabetes
CPT/HCPCS: 36415; 81001; 83036; 84153

== ENCOUNTER 2025-02-22 09:16 | Emergency (ER) | payer OTHER, SELFPAY ==
[2024-05-25 11:53] VITALS: BMI 30.1
[2025-02-22 09:24] VITALS: BP 124/60; PULSE 86; RESP 14; TEMP 36.4; O2SAT 98; BMI 28.5
--- NOTE | 2025-02-22 09:45 | DI.US.S_ITS ---
PROCEDURE: US PERIPH VENOUS LOW EXTREM LT INDICATIONS: 1wk s/p knee surg/ pain and swelling TECHNIQUE: Real-time imaging, as well as color and pulse Doppler interrogation, were performed of the lower extremity deep veins from the inguinal ligament to the popliteal fossa, with documentation of the visualized calf veins. COMPARISON: None. FINDINGS: The common femoral, femoral, popliteal, and the visualized calf veins are normally compressible, and free of intraluminal thrombus. Color and pulse Doppler demonstrate normal phasic intraluminal flow. There is normal augmentation response to distal compression maneuver. IMPRESSION: No findings of lower extremity deep venous thrombosis. Dictated by: Khari Young M.D. on 02/22/2025 at 10:37 Approved by: Khari Young M.D. on 02/22/2025 at 10:37
[2025-02-22 11:50] VITALS: PULSE 78
--- NOTE | 2025-02-22 11:53 | ED.EXTPRO ---
HPI - Extremity Problem <Lupe Singh PA-C - Last Filed: 02/22/25 15:17> General Chief complaint: Extremity Problem,Nontraumatic Stated complaint: Left knee pain, Possible Blood clot sent from DR Time Seen by Provider: 02/22/25 11:07 Source: patient Mode of arrival: Wheelchair History of Present Illness HPI Narrative: Mr. 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 Giles, hypertension who presents to the emergency department with his son for left lower leg redness, pain, swelling x2 days concern for DVT. Patient states he had his left knee replaced on 02/[address] Giles. States that he was doing well for the 1st few days, he currently has a drain in place that he was prompted to cut off, however states that he has not been having the normal range of motion that he had with his last knee replacement. About 2 or 3 days ago he noticed redness swelling and warmth of the left lower extremity and significant increase in his pain. He was supposed to start physical therapy today but was sent to the ER for concern of possible blood clot. Patient denies chest pain, shortness of breath, fevers, chills, nausea, vomiting and reports that he has been feeling well otherwise. He has been using Tylenol and oxycodone for pain, he is due for his medication at this time. Denies any fall or trauma. Related Data Home Medications ?Medication ?Instructions ?Recorded ?Confirmed apixaban 5 mg tablet (Eliquis) 5 mg PO BID 12/13/23 01/30/25 cetirizine 10 mg capsule (Zyrtec) 10 mg PO DAILY 12/13/23 01/30/25 acetaminophen 500 mg tablet 1,000 mg PO TID 05/17/24 01/30/25 (Tylenol Extra Strength) Previous Rx's ?Medication ?Instructions ?Recorded amlodipine 5 mg tablet 5 mg PO DAILY #90 tabs 04/06/24 finasteride 5 mg tablet 5 mg PO DAILY #90 tabs 01/02/25 metoprolol succinate 25 mg 75 mg (3 x 25 mg) PO DAILY #270 01/02/25 tablet,extended release 24 hr tabs methocarbamol 500 mg tablet 500 mg PO TID PRN muscle spasm #9 02/22/25 tabs Allergies Allergy/AdvReac Type Severity Reaction Status Date / Time lisinopril Allergy Severe angioedema Verified 02/22/25 09:24 Review of Systems <Lupe Singh PA-C - Last Filed: 02/22/25 15:17> Review of Systems ROS Unobtainable: All systems reviewed & are unremarkable except as noted in HPI and below Patient History <Lupe Singh PA-C - Last Filed: 02/22/25 15:17> Medical History Dysphagia Dry mouth Status post chemoradiation Osteoarthritis Pulmonary embolism on long-term anticoagulation therapy (05/2022) DVT (deep venous thrombosis) Wears glasses Gout (~2020) Head and neck cancer (~2022) Bilateral hydrocele (~09/2017) Hernia Hypertension Hydrocele (05/22/16) Pain of right hip joint (12/31/15) Essential hypertension (12/31/15) Surgical History 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) History of hydrocelectomy (09/2017) Hx of hernia repair (09/2017) Status post appendectomy (1967) Status post hernia repair (2002) Status post hernia repair (2006) Family History Mother Type 2 diabetes mellitus without complication, without long-term current use of insulin Father Walks frequently Social History household members: spouse Smoking Status: Unknown if ever smoked alcohol intake: current Smoking Status: Unknown if ever smoked alcohol intake frequency: 0-2 drinks per day Exam <Lupe Singh PA-C - Last Filed: 02/22/25 15:17> Narrative Exam Narrative: GENERAL: 69 year old patient appears stated age. Frail elderly patient, in no acute distress. HEAD: Atraumatic. Normocephalic. NECK: Trachea midline. Cervical ROM intact. CARDIOVASCULAR: Regular rate and rhythm. RESPIRATORY: ?Nonlabored respirations. ?Speaking in clear, full sentences. ?Clear to auscultation. EXTREMITIES: Left lower extremity with anterior knee surgical dressing and drain tubing in place, kept in place as requested by surgeon. There is minimal erythema surrounding midline surgical incision dressing. Erythema is predominantly around the medial and lateral malleolus of the left ankle with slight extension of erythema up the anterior left leg. There is 1+ edema of the left lower extremity with no edema of the right lower extremity. Edema extends onto the left foot. There is brisk capillary refill on the left foot, 1+ palpable DP pulse, and sensation intact to light touch. Patient does have pain with light touch of the left foot and lower extremity. And pain with both passive and active range of motion of the left knee and left ankle. There is ecchymoses across the lateral aspect of the left lower extremity and the medial left thigh. BACK: No midline tenderness. NEURO: Alert and oriented, does rely on his son to answer some questions. Sensation intact to light touch on bilateral lower extremities. SKIN: Erythema and ecchymoses of left lower extremity described above. Initial Vital Signs Initial Vital Signs: Vital Signs Temperature 97.6 F 02/22/25 09:24 Pulse Rate 86 02/22/25 09:24 Respiratory Rate 14 02/22/25 09:24 Blood Pressure 124/60 02/22/25 09:24 Pulse Oximetry 98 02/22/25 09:24 Oxygen Delivery Method Room Air 02/22/25 09:24 <Reginaldo Carballo MD - Last Filed: 02/23/25 08:30> Initial Vital Signs Initial Vital Signs: Vital Signs Temperature 97.6 F 02/22/25 09:24 Pulse Rate 86 02/22/25 09:24 Respiratory Rate 14 02/22/25 09:24 Blood Pressure 124/60 02/22/25 09:24 Pulse Oximetry 98 02/22/25 09:24 Oxygen Delivery Method Room Air 02/22/25 09:24 Course <Lupe Singh PA-C - Last Filed: 02/22/25 15:17> Orders Ordered: Discontinued Medications Acetaminophen (Acetaminophen 325 Mg Tablet) 975 mg PO NOW ONE Stop: 02/22/25 11:53 Last Admin: 02/22/25 12:01 Dose: 975 mg Documented By: RB Methocarbamol (Methocarbamol 500 Mg Tablet) 500 mg PO NOW ONE Stop: 02/22/25 13:18 Last Admin: 02/22/25 13:57 Dose: 500 mg Documented By: RB Oxycodone HCl (Oxycodone Ir 5 Mg Tablet) 5 mg PO NOW ONE Stop: 02/22/25 11:53 Last Admin: 02/22/25 12:01 Dose: 5 mg Documented By: RB Consultations Consultation #1: Discussed case with pt's orthopedic surgeon, Dr. Giles, and with the patient consent sent her pictures of the leg. At this time she request CBC, CRP, ESR. We discussed negative ultrasound report. She states that patient was actually supposed to have an ultrasound come to her office today. Time: 12:15 Consultation #2: Discussed case again with Dr. Giles, reviewed all lab work, at this time she states there is no evidence of infection, no antibiotics are warranted, she would like patient to increase rest, ice, elevation and see her tomorrow in clinic if he has continued concerns. Time: 13:27 Vital Signs Vital signs: Vital Signs - 8 hr 02/22/25 09:24 02/22/25 11:50 02/22/25 14:20 Temperature 97.6 F 97.8 F Pulse Rate 86 73 Pulse Rate [Left Posterior Tibial] 78 Respiratory Rate 14 20 Blood Pressure 124/60 120/59 L Pulse Oximetry 98 95 Oxygen Delivery Method Room Air Room Air <Reginaldo Carballo MD - Last Filed: 02/23/25 08:30> Orders Ordered: Discontinued Medications Acetaminophen (Acetaminophen 325 Mg Tablet) 975 mg PO NOW ONE Stop: 02/22/25 11:53 Last Admin: 02/22/25 12:01 Dose: 975 mg Documented By: RB Methocarbamol (Methocarbamol 500 Mg Tablet) 500 mg PO NOW ONE Stop: 02/22/25 13:18 Last Admin: 02/22/25 13:57 Dose: 500 mg Documented By: RB Oxycodone HCl (Oxycodone Ir 5 Mg Tablet) 5 mg PO NOW ONE Stop: 02/22/25 11:53 Last Admin: 02/22/25 12:01 Dose: 5 mg Documented By: RB Vital Signs Vital signs: Vital Signs - 8 hr 02/22/25 09:24 02/22/25 11:50 02/22/25 14:20 Temperature 97.6 F 97.8 F Pulse Rate 86 73 Pulse Rate [Left Posterior Tibial] 78 Respiratory Rate 14 20 Blood Pressure 124/60 120/59 L Pulse Oximetry 98 95 Oxygen Delivery Method Room Air Room Air MDM - Extremity (Nontraumatic) <Lupe Singh PA-C - Last Filed: 02/22/25 15:17> Lab Data 02/22/25 12:10 02/22/25 12:10 Labs: Lab Results 02/22/25 Range/Units 12:10 WBC 9.5 (4.5-11.0) X10^3/uL RBC 3.46 L (4.5-5.9) X10^6/uL Hgb 11.4 L (13.5-17.5) g/dL Hct 34.0 L (41-53) % MCV 98.4 (80-100) fL MCH 32.9 (26-34) PG MCHC 33.4 (30-36) % RDW 14.3 (11.6-14.8) % Plt Count 342 (150-400) X10^3/uL Neut % (Auto) 71.2 (50-75) % Lymph % (Auto) 9.4 L (25-40) % [place] % (Auto) 17.5 H (3-14) % Eos % (Auto) 1.2 L (2-4) % Baso % (Auto) 0.7 (0-2) % Neut # (Auto) 6800 (9373-5245) /uL Lymph # (Auto) 900 L (7413-9724) /uL [place] # (Auto) 1700 H (0-900) /uL Eos # (Auto) 100 (0-450) /uL Baso # (Auto) 100 (0-100) /uL ESR 60 H (0-15) MM/HR Sodium 135 L (137-145) mmol/L Potassium 3.7 (3.4-5.1) mmol/L Chloride 101 (98-107) mmol/L Carbon Dioxide 25 (22-32) mmol/L BUN 19 (9-20) mg/dL Creatinine 0.80 (0.66-1.25) mg/dL Estimated GFR > 60 (>60) mL/min BUN/Creatinine Ratio 23.8 H (6-22) Glucose 134 H (70-99) mg/dL Uric Acid 5.0 (3.5-8.5) mg/dL Calcium 8.9 (8.4-10.2) mg/dL Total Bilirubin 1.5 H (0.2-1.3) mg/dL AST 26 (17-59) IU/L ALT 19 (<50) IU/L Alkaline Phosphatase 71 (38-126) U/L C-Reactive Protein 7.9 H (<1.0) mg/dL Total Protein 7.3 (6.3-8.2) g/dL Albumin 4.0 (3.5-5.0) g/dL Globulin 3.3 (1.7-4.1) g/dL Albumin/Globulin Ratio 1.2 (1.0-2.8) MDM Narrative Medical decision making narrative: 69-year-old male with a 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 Giles, hypertension who presents to the emergency department with his son for left lower leg redness, pain, swelling x2 days concern for DVT. Differential diagnosis includes but is not limited to cellulitis, septic arthritis, DVT, postoperative pain, postoperative bleeding, etc. On exam patient is in no acute distress, nontoxic-appearing, all vital signs within normal limits. Physical exam reveals erythema and increased warmth of the left lower extremity primarily around the ankle with minimal erythema around the surgical site. He does have pain from the foot through the knee. No fevers. Ultrasound obtained in triage was negative for DVT. Discussed case with his surgeon, Dr. Giles, we will order CBC, CMP, ESR, CRP. We will also obtain imaging of knee and ankle due to patient's significant pain. We will treat with home dose pain medication Tylenol and oxycodone. Labs reveal normal WBC count 9.5. Decreased Hemoglobin 11.4 hematocrit 34.0. Normal neutrophil count. ESR is elevated at 60. Sodium 135, potassium 3.7, BUN 19 creatinine 0.80. Glucose 134. Very slight elevation of total bilirubin 1.5 with remainder of LFTs within normal limits. Normal uric acid 5.0. CRP is elevated 7.9. 1310: Updated patient on lab work results. His pain is improved. He is eager to go home. Patient is aware we are waiting on further discussion with the surgeon. Reports that he occasionally gets muscle spasms of the leg and back and then after prior surgeries he received muscle relaxers but he did not this time and is interested in a dose of muscle relaxer which I am agreeable to. Discussed risks of narcotics and muscle relaxers. Discussed history, physical exam, lab work with orthopedic surgery Dr. Giles. At this time she has not concerned for infection, would like patient to continue resting, taking prescribed pain medication, icing and elevating the leg. She can see the patient in office tomorrow if he has continued concerns. Printed and discussed all imaging results with the patient his son. He is feeling better at this time, eager to go home. Discussed strict ED return precautions, the importance of rest, ice, elevation and supportive care. Discussed risks of opioids and muscle relaxers. Patient verbalized understanding of all information agreeable with the plan, declines the need for any walking assistive devices as he states he has walker at home, stable for discharge home. <Reginaldo Carballo MD - Last Filed: 02/23/25 08:30> Lab Data Labs: Lab Results 02/22/25 Range/Units 12:10 WBC 9.5 (4.5-11.0) X10^3/uL RBC 3.46 L (4.5-5.9) X10^6/uL Hgb 11.4 L (13.5-17.5) g/dL Hct 34.0 L (41-53) % MCV 98.4 (80-100) fL MCH 32.9 (26-34) PG MCHC 33.4 (30-36) % RDW 14.3 (11.6-14.8) % Plt Count 342 (150-400) X10^3/uL Neut % (Auto) 71.2 (50-75) % Lymph % (Auto) 9.4 L (25-40) % [place] % (Auto) 17.5 H (3-14) % Eos % (Auto) 1.2 L (2-4) % Baso % (Auto) 0.7 (0-2) % Neut # (Auto) 6800 (4494-9018) /uL Lymph # (Auto) 900 L (5041-4777) /uL [place] # (Auto) 1700 H (0-900) /uL Eos # (Auto) 100 (0-450) /uL Baso # (Auto) 100 (0-100) /uL ESR 60 H (0-15) MM/HR Sodium 135 L (137-145) mmol/L Potassium 3.7 (3.4-5.1) mmol/L Chloride 101 (98-107) mmol/L Carbon Dioxide 25 (22-32) mmol/L BUN 19 (9-20) mg/dL Creatinine 0.80 (0.66-1.25) mg/dL Estimated GFR > 60 (>60) mL/min BUN/Creatinine Ratio 23.8 H (6-22) Glucose 134 H (70-99) mg/dL Uric Acid 5.0 (3.5-8.5) mg/dL Calcium 8.9 (8.4-10.2) mg/dL Total Bilirubin 1.5 H (0.2-1.3) mg/dL AST 26 (17-59) IU/L ALT 19 (<50) IU/L Alkaline Phosphatase 71 (38-126) U/L C-Reactive Protein 7.9 H (<1.0) mg/dL Total Protein 7.3 (6.3-8.2) g/dL Albumin 4.0 (3.5-5.0) g/dL Globulin 3.3 (1.7-4.1) g/dL Albumin/Globulin Ratio 1.2 (1.0-2.8) Discharge Plan Departure Patient Disposition: Home Clinical Impression: Postoperative pain of extremity, Swelling of left lower extremity, Effusion of ankle joint, left Instructions: DI for Ankle Pain Activity Restrictions/Additional Instructions: Dear Mr. Squires, Thank you for coming to the emergency department. Today you were evaluated for pain and swelling of the left lower extremity. We are very happy that your ultrasound revealed no blood clot of the left leg. I discussed everything going on with your surgeon, Dr. Giles. She would like you to rest, continue elevating the leg, apply ice to the leg, and call the office to see her tomorrow if you have any concerns. As we discussed today, I did send you a short course of muscle relaxers which you can use if needed for spasms. Please be aware that opioid pain medications and muscle relaxers can both cause sedation so you need to use these medications very cautiously together. Please use RICE therapy for your pain in addition to prescribed pain medications. Rest the painful area. Ice the area of pain/swelling for at least 15 minutes, 4x a day. Compress the area of swelling using a brace, wrap, or splint if applied. Elevate the painful or swollen extremity by supporting it above the level of the heart with pillows when sitting or laying. Please follow up with your primary care doctor within the next 2-3 days for ER follow-up. (If you do not have a PCP you can call [phone]. ?to schedule an appointment with an [facility] Primary Care Provider) IF YOU DEVELOP ANY NEW OR WORSENING SYMPTOMS, RETURN TO THE ER! Please read the attached instructions, they highlight more specific treatments and interventions for you at home. Thank you for letting me participate in your care, Lupe Singh PA-C Prescriptions: New methocarbamol 500 mg tablet 500 mg PO TID PRN (Reason: muscle spasm) Qty: 9 0RF No Action amlodipine 5 mg tablet 5 mg PO DAILY Qty: 90 3RF finasteride 5 mg tablet 5 mg PO DAILY Qty: 90 3RF metoprolol succinate 25 mg tablet extended release 24 hr 75 mg PO DAILY Qty: 270 0RF Eliquis 5 mg tablet 5 mg PO BID Zyrtec 10 mg capsule 10 mg PO DAILY acetaminophen [Tylenol Extra Strength] 500 mg Tablet 1,000 mg PO TID Referrals: Betsy Giles MD [Physician, Orthopedic Surgery] Referral Note: L leg pain Aundrea Nance DO [Primary Care Provider, Family Practice] Stand Alone Forms: Patient Portal/API ED Sign-out <Reginaldo Carballo MD - Last Filed: 02/23/25 08:30> Cosign ED Attending Cosignature Attestation: Physician attestation: I was readily available for consultation at all times. I agree with assessment and plan of care. Reginaldo Carballo MD
[2025-02-22] MEDS: ACETAMINOPHEN 325 MG TABLET 975 MG PO (12:01)
--- NOTE | 2025-02-22 12:05 | DI.RAD.S_ITS ---
PROCEDURE: XR ANKLE LT MIN 3V INDICATIONS: L knee surg post op 1 week; L ankle pain swelling redness TECHNIQUE: 3 views of the ankle were acquired. COMPARISON: None. FINDINGS: Bones: No fractures or dislocations. Ankle mortise is normally aligned. No suspicious bony lesions. Soft tissues: Moderate tibiotalar joint effusion. Achilles tendon appears normal. IMPRESSION: No acute bony abnormality. Moderate joint effusion. Dictated by: Robert Naranjo M.D. on 02/22/2025 at 13:50 Approved by: Robert Naranjo M.D. on 02/22/2025 at 13:50
--- NOTE | 2025-02-22 12:05 | DI.RAD.S_ITS ---
PROCEDURE: XR KNEE LT 1TO2V INDICATIONS: post-op 1 week, pain and swelling TECHNIQUE: 2 views of the knee were acquired. COMPARISON: None. FINDINGS: Bones: No fractures or dislocations. No suspicious bony lesions. Well-aligned, intact left total knee arthroplasty without hardware complication. Soft tissues: No joint effusion. No suspicious soft tissue calcifications. Generalized edema about the knee. No subcutaneous gas. IMPRESSION: Generalized edema about the knee, without bony abnormality. Dictated by: Robert Naranjo M.D. on 02/22/2025 at 13:52 Approved by: Robert Naranjo M.D. on 02/22/2025 at 13:53
--- NOTE | 2025-02-22 12:19 | PC.NURSE ---
Patient left in wheelchair with [facility]pe X-ray tech for knee x-ray.
[2025-02-22 12:22] LABS: Add Manual Diff / Slide Review NO; Hematocrit 34.0 % (41-53); Hemoglobin 11.4 g/dL (13.5-17.5); Lymphocytes Absolute Auto 900 /uL (1100-4500); Mean Corpuscular HGB Conc 33.4 % (30-36); Mean Corpuscular Hemoglobin 32.9 PG (26-34); Mean Corpuscular Volume 98.4 fL (80-100); Platelet Count 342 X10^3/uL (150-400)
[2025-02-22 12:37] LABS: Alanine Aminotransferase 19 IU/L (<50); Albumin 4.0 g/dL (3.5-5.0); Albumin Globulin Ratio 1.2 (1.0-2.8); Alkaline Phosphatase 71 U/L (38-126); Blood Urea Nitrogen 19 mg/dL (9-20); Calcium 8.9 mg/dL (8.4-10.2); Carbon Dioxide 25 mmol/L (22-32); Chloride 101 mmol/L (98-107); Estimated Glomerular Filt Rate > 60 mL/min (>60); Globulin 3.3 g/dL (1.7-4.1); Glucose 134 mg/dL (70-99); HEMOLYSIS < 15 (0-50); Potassium 3.7 mmol/L (3.4-5.1); Sodium 135 mmol/L (137-145); Total Protein 7.3 g/dL (6.3-8.2); Uric Acid 5.0 mg/dL (3.5-8.5)
[2025-02-22 14:20] VITALS: BP 120/59; PULSE 73; RESP 20; TEMP 36.6; O2SAT 95
== END 2025-02-22 14:23 | disposition home or self-care (01) ==
PROVIDERS: Emergency Provider Physician Assistant; PCP Family Medicine
DX: G89.18 Other acute postprocedural pain (principal); R60.0 Localized edema; M25.472 Effusion, left ankle; Z96.652 Presence of left artificial knee joint; Z79.01 Long term (current) use of anticoagulants; Z85.21 Personal history of malignant neoplasm of larynx
CPT/HCPCS: 36415; 73560; 73610; 80053; 84550; 85025; 85651; 86140; 93971; 99284

== ENCOUNTER → 2025-02-27 12:19 | Outpatient (CLI) | payer OTHER, SELFPAY ==
[2024-05-25 11:53] VITALS: BMI 30.1
[2025-02-27 13:13] LABS: Uric Acid 4.2 mg/dL (3.5-8.5)
== END ==
PROVIDERS: PCP Family Medicine; Referring Provider Orthopaedic Surgery; Visit Provider Orthopaedic Surgery
DX: M10.072 Idiopathic gout, left ankle and foot (principal); M79.672 Pain in left foot
CPT/HCPCS: 36415; 84550

== ENCOUNTER → 2025-04-23 13:19 | Outpatient (CLI) | payer OTHER, SELFPAY ==
[2024-05-25 11:53] VITALS: BMI 30.1
[2025-04-23 15:53] LABS: Add Manual Diff / Slide Review NO; Hematocrit 40.4 % (41-53); Hemoglobin 13.6 g/dL (13.5-17.5); Lymphocytes Absolute Auto 1700 /uL (1100-4500); Mean Corpuscular HGB Conc 33.7 % (30-36); Mean Corpuscular Hemoglobin 31.6 PG (26-34); Mean Corpuscular Volume 93.9 fL (80-100); Platelet Count 261 X10^3/uL (150-400)
[2025-04-23 16:14] LABS: Alanine Aminotransferase 22 IU/L (<50); Albumin 4.0 g/dL (3.5-5.0); Albumin Globulin Ratio 1.3 (1.0-2.8); Alkaline Phosphatase 121 U/L (38-126); Blood Urea Nitrogen 15 mg/dL (9-20); Calcium 9.1 mg/dL (8.4-10.2); Carbon Dioxide 29 mmol/L (22-32); Chloride 103 mmol/L (98-107); Estimated Glomerular Filt Rate > 60 mL/min (>60); Globulin 3.0 g/dL (1.7-4.1); Glucose 104 mg/dL (70-99); HEMOLYSIS < 15 (0-50); Potassium 4.2 mmol/L (3.4-5.1); Sodium 137 mmol/L (137-145); Total Protein 7.0 g/dL (6.3-8.2)
== END ==
PROVIDERS: PCP Family Medicine; Referring Provider Internal Medicine Hematology & Oncology; Visit Provider Internal Medicine Hematology & Oncology
DX: C7A.8 Other malignant neuroendocrine tumors (principal); Z08 Encounter for follow-up examination after completed treatment for malignant neoplasm; Z85.89 Personal history of malignant neoplasm of other organs and systems
CPT/HCPCS: 36415; 80053; 85025